=== PATIENT | male | born 1995 | race Caucasian/White ===

== ENCOUNTER 2020-01-12 23:31 | Emergency (ER) | payer SELFPAY ==
[2020-01-12 23:52] VITALS: BP 136/82; PULSE 105; RESP 18; TEMP 36.6; O2SAT 100; BMI 21.2
--- NOTE | 2020-01-13 00:14 | W.ED.ANIMALB ---
HPI - Animal Bite General: Chief Complaint: Animal Bite Stated Complaint: Bitten by bat Time Seen by Provider: 01/12/20 23:44 History of Present Illness: HPI narrative: Patient states that the bat flew down while he is walking night and bit him right hand and webspace between thumb and first finger complaint: animal bite Onset (ago): minute(s) Animal: bat and other Mechanism: bite Associated symptoms: Reports no associated symptoms; Deny chills, fever(s) or headache(s) Review of Systems Const: Denies: fever(s), chills or body aches Eyes: Denies: change in vision or blurry vision ENMT: Denies: throat pain or nasal congestion Card: Denies: chest pain or dyspnea on exertion Resp: Denies: dyspnea, productive cough or non-productive cough GI: Denies: abdominal pain, nausea or vomiting : Denies: difficulty urinating Musc: Denies: extremity pain Skin/Breast: Reports: other (Bat bite to right hand); Denies: rash Neuro: Denies: headache(s) Psych: Denies: anxiety or depression Renny/Lymph: Denies: easy bruising PFSH ED PFSH: Social History Smoking and tobacco status: never smoked Physical Exam Const: COMMON NORMALS: no acute distress, average body habitus and patient oriented x3 HENMT: COMMON NORMALS: normocephalic HEAD & SCALP: normal to inspection and normocephalic FACE & SINUS: normal facial exam Eye: COMMON NORMALS: conjunctivae normal GENERAL EYE: appearance normal, both eyes and all related structures CONJUNCTIVA: Yes conjunctivae normal Neck/C-Spine: COMMON NORMALS: no JVD Chest: COMMONS NORMALS: normal inspection of the chest Resp: COMMON NORMALS: normal respiratory effort and clear to auscultation bilaterally AUSCULTATION: clear to auscultation bilaterally Cardio: COMMON NORMALS: no JVD and regular rhythm RATE: tachycardic RHYTHM: regular rhythm GI: COMMON NORMALS: Normal to inspection, nondistended, normoactive bowel sounds present Extremity: COMMON NORMALS: normal to inspection and full ROM Neuro: COMMON NORMALS: patient oriented x3 Skin: RASHES: other (Right hand webspace no visible bite corey that I can see patient is tender in that area) Course Vital Signs: Vital signs: Vital Signs Temperature 97.8 F 01/12/20 23:52 Pulse Rate 105 H 01/12/20 23:52 Respiratory Rate 18 01/12/20 23:52 Blood Pressure 136/82 01/12/20 23:52 Pulse Oximetry 100 01/12/20 23:52 MDM - Animal Bite MDM Narrative: Medical decision making narrative: I injected webspace right hand were patient said he thought he probably got bit again there was no bite corey no redness no swelling no abrasions patient are heard in a specific spot I injected immunoglobulin around that area Discharge Plan Discharge Prescriptions: No Action No Known Home Medications RF: 0 Coding Level of Care Code ED Program Coordinator For [facility] for Chg Fwd Exam Comprehensive
[2020-01-13] MEDS: rabies vaccine 2.5 unit SDV IM (00:49)
[2020-01-13] MEDS: tetanus-dipt-pertussis 0.5 mL SDV IM (00:53)
[2020-01-13 01:04] VITALS: BP 128/74; PULSE 87; RESP 18; TEMP 37.1; O2SAT 98
== END 2020-01-13 01:10 | disposition home or self-care (01) ==
PROVIDERS: Emergency Provider Nurse Practitioner Family
DX: S60.571A Other superficial bite of hand of right hand, initial encounter (principal); W55.81XA Bitten by other mammals, initial encounter; Z20.3 Contact with and (suspected) exposure to rabies; Z29.14 Encounter for prophylactic rabies immune globulin
CPT/HCPCS: 12345; 90375; 90471; 90675; 90715; 99281; 99283

== ENCOUNTER 2021-07-18 09:10 | Emergency (ER) | payer OTHER, SELFPAY ==
[2021-07-18 09:24] VITALS: BP 128/80; PULSE 86; RESP 20; TEMP 36.8; O2SAT 99; BMI 23.1
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
[2021-07-18] MEDS: iohexol 300 mg/mL 100 mL Btl IV (10:05)
[2021-07-18 10:20] VITALS: BP 143/75; PULSE 74; RESP 24; O2SAT 100
[2021-07-18 10:32] LABS: Basophils % 0.5 %; Eosinophils # 0.1 10^3/uL (0.0-0.8); Eosinophils % 0.7 %; Hematocrit 43.9 % (42.0-52.0); Hemoglobin 15.7 g/dL (11.7-16.6); Lymphocytes # 1.5 10^3/uL (0.8-4.8); Lymphocytes % 17.6 %; Mean Corpuscular HGB Conc 35.8 g/dL (30.0-36.0); Mean Corpuscular Hemoglobin 32.2 pg (28.0-34.0); Mean Platelet Volume 10.7 fL (7.4-10.4); Monocytes # 0.6 10^3/uL (0.2-0.9); Monocytes % 7.1 %; Neutrophils # 6.12 10^3/uL (1.8-7.7); Neutrophils % 73.9 %; Nucleated Red Blood Cells % 0 %; Platelet Count 281 10^3/cmm (130-400); Red Blood Count 4.88 10^6/uL (4.1-5.3); Red Cell Distribution Width 12.3 % (12.1-15.1); White Blood Count 8.3 10^3/uL (4.0-10.0)
[2021-07-18] MEDS: ondansetron 2 mg/ML SDV 2 mL 4 MG IVP (10:44)
[2021-07-18] MEDS: morphine 4 mg/mL SDV 1 mL IVP (10:44)
[2021-07-18 11:06] LABS: Alanine Aminotransferase 30 U/L (0-41); Albumin Level 4.8 g/dL (3.5-5.2); Alkaline Phosphatase 61 IU/L (40-130); Anion Gap 18.3 (5-19); Aspartate Amino Transferase 25 U/L (0-40); Blood Urea Nitrogen 15 mg/dL (6-20); Calcium 9.2 mg/dL (8.5-10.5); Carbon Dioxide 23 mmol/L (22-29); Chloride 105 mmol/L (98-107); Globulin 1.7 g/dL (1.3-4.6); Glomerular Filtration Rate 139.8 mL/min (90-130); Glucose 87 mg/dL (65-115); Osmolality Calculated 294 mOsm/kg (285-295); Potassium 4.3 mmol/L (3.5-5.1); Sodium 142 mmol/L (136-145); Total Bilirubin 0.3 mg/dL (0.15-1.2); Total Protein 6.5 g/dL (6.6-8.7)
[2021-07-18] MEDS: ketorolac 30 mg/mL INJ IVP (11:31)
[2021-07-18 11:32] VITALS: BP 125/69; PULSE 75; O2SAT 99
== END 2021-07-18 11:32 | disposition home or self-care (01) ==
PROVIDERS: Family Medicine; Emergency Provider Physician Assistant
DX: S16.1XXA Strain of muscle, fascia and tendon at neck level, initial encounter (principal); V89.2XXA Person injured in unspecified motor-vehicle accident, traffic, initial encounter
CPT/HCPCS: 70450; 71260; 72125; 72128; 74177; 80053; 85025; 96374; 96375; 99283; J1885; J2270; J2405; Q9967

== ENCOUNTER 2022-09-06 08:23 | Outpatient (CLI) | payer BC, SELFPAY ==
--- NOTE | 2022-09-06 08:35 | US_ITS ---
WS: [id number] RIGHT UPPER QUADRANT ULTRASOUND HISTORY: L INGUINAL HERNIA COMPARISON: None available. Ultrasound directed to the LEFT inguinal region. Normal appearance of the soft tissues. No herniating loop of bowel is identified. No peristalsis. There is a small lymph node along the LEFT inguinal reg ion. US/US abdomen limited [id number] IMPRESSION: By ultrasound no LEFT inguinal hernia is identified.
== END 2022-09-06 08:24 | disposition home or self-care (01) ==
PROVIDERS: Visit Provider Nurse Practitioner
DX: K40.90 Unilateral inguinal hernia, without obstruction or gangrene, not specified as recurrent (principal)
CPT/HCPCS: 76705